=== PATIENT | male | born 1975 | race Caucasian/White ===

== ENCOUNTER 2017-01-02 16:58 | Emergency (ER) | payer OTHER ==
[2017-01-02 18:36] VITALS: BP 141/95
--- NOTE | 2017-01-02 20:08 | RAD ---
INDICATION: Right ankle injury COMPARISON: January 13, 2015 TECHNIQUE: AP, lateral, and oblique views were obtained. FINDINGS: There is no acute fracture or dislocation. There is mild lateral soft tissue swelling. IMPRESSION: MILD LATERAL SOFT TISSUE SWELLING.
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
== END 2017-01-02 20:47 | disposition home or self-care (01) ==
LOC: UCEAST 16:58
DX: S93.401A Sprain of unspecified ligament of right ankle, initial encounter (principal); X58.XXXA Exposure to other specified factors, initial encounter; Z87.891 Personal history of nicotine dependence
CPT/HCPCS: 99213; G0463

== ENCOUNTER 2018-06-13 15:54 | Emergency (ER) | payer OTHER ==
--- NOTE | 2018-06-13 16:49 | RAD ---
INDICATION: Persistent RIGHT wrist pain one month following injury. COMPARISON: February 15, 2016 TECHNIQUE: AP, lateral, and oblique views RIGHT wrist. REPORT AND IMPRESSION: #. Negative for fracture. #. Mild ulnar plus variance which increases stress on the triangular fibrocartilage. #. Mild osteoarthritis including at the basal joint of the thumb and first metacarpal phalangeal joint. #. Mild nonfocal soft tissue swelling.
[2018-06-13 17:11] VITALS: BP 141/93
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
== END 2018-06-13 17:08 | disposition home or self-care (01) ==
LOC: ED 15:54
DX: M77.9 Enthesopathy, unspecified (principal); Z87.891 Personal history of nicotine dependence; Z85.820 Personal history of malignant melanoma of skin
CPT/HCPCS: 99282

== ENCOUNTER 2018-10-05 13:43 | Emergency (ER) | payer OTHER ==
[2018-10-05 13:59] VITALS: BP 140/90
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
[2018-10-05] MEDS ORDERED: Ibuprofen TAB* 600 MG PO ONE (14:18)
== END 2018-10-05 15:24 | disposition home or self-care (01) ==
LOC: UCEAST 13:43
DX: S39.012A Strain of muscle, fascia and tendon of lower back, initial encounter (principal); M25.531 Pain in right wrist; M25.561 Pain in right knee; Z87.891 Personal history of nicotine dependence; W00.0XXA Fall on same level due to ice and snow, initial encounter; Y92.9 Unspecified place or not applicable
CPT/HCPCS: 99212; A9270-GY; G0463

== ENCOUNTER 2019-02-27 19:06 | Emergency (ER) | payer OTHER ==
[2019-02-27] MEDS ORDERED: Bacitracin OINTMENT* 0.5% 0.5 oz TUBE TOPICAL ONE (21:18)
[2019-02-27] MEDS ORDERED: Tetan/Diph/Pertus SYR(Tdap)* 0.5 ML SYR(BOOSTRIX) use SYR IM ONE (21:18)
[2019-02-27] MEDS ORDERED: Sulfamethox/Trimethoprim DS 800/160* TAB PO ONE (21:19)
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
[2019-02-27 21:49] VITALS: BP 139/91
== END 2019-02-27 21:48 | disposition home or self-care (01) ==
LOC: ED 19:06
DX: T24.032A Burn of unspecified degree of left lower leg, initial encounter (principal); X18.XXXA Contact with other hot metals, initial encounter; V28.0XXA Motorcycle driver injured in noncollision transport accident in nontraffic accident, initial encounter; Y92.9 Unspecified place or not applicable; Z87.891 Personal history of nicotine dependence; Z23 Encounter for immunization
CPT/HCPCS: 90471; 90715; 99282; A9270-GY

== ENCOUNTER 2019-05-05 17:58 | Emergency (ER) | payer OTHER ==
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
[2019-05-05] MEDS ORDERED: Morphine 4 MG/ML VIAL (1 ml) 4 MG/ML VIAL IV ONE ×2 (18:18→20:16)
[2019-05-05] MEDS ORDERED: NS 0.9% 1000 ML** 1,000 ML IV ONE (18:18)
[2019-05-05 19:07] LABS: ABS Lymphocytes 0.7 10^3/ul (1.0-4.8); ABS Monocytes 0.8 10^3/ul (0-0.8); ABS Neutrophils 11.4 10^3/ul (1.5-7.7); Eosinophil % 0.1 %; Hematocrit 42 % (42-52); Hemoglobin 14.3 g/dL (14.0-18.0); Lymphocyte % 5.7 %; Mean Corpuscular HGB Conc 34 g/dL (31-36); Mean Corpuscular Hemoglobin 29 pg (27-31); Mean Corpuscular Volume 86 fL (80-94); Mean Platelet Volume 8.1 fL (7.4-10.4); Nucleated Red Blood Cells % 0.1; Platelet Count 173 10^3/uL (150-450); Red Blood Count 4.94 10^6 /uL (4.18-5.48); Red Cell Distribution Width 13 % (10-15)
[2019-05-05 19:23] LABS: Albumin 4.4 g/dL (3.2-5.2); Albumin/Globulin Ratio 1.7 (1-3); BUN/Creatinine Ratio 12.9 (8-20); Calcium 8.9 mg/dL (8.6-10.3); EGFR African American 106.3 (>60); EGFR Non-African American 87.9 (>60); Globulin 2.6 g/dL (2-4); Potassium 3.7 mmol/L (3.5-5.0); Total Bilirubin 0.7 mg/dL (0.2-1.0)
[2019-05-05 19:25] LABS: Troponin I 0.01 ng/mL (<0.04)
[2019-05-05] MEDS ORDERED: Iohexol 300* (CONTRAST) 10 ML SDV IV ONE (19:29)
[2019-05-05] MEDS ORDERED: Lidocaine 2% w/ EPI 1:200,000* 20 ML SDV VIAL INJ ONE (20:49)
[2019-05-05] MEDS ORDERED: Benzocaine/Butamben/Tetracain (CETACAINE - SINGLE USE) 5 gm TOPICAL ONE (20:50)
[2019-05-05 21:56] LABS: Urine Appearance Clear; Urine Bacteria Absent (Absent); Urine Bilirubin Negative (Negative); Urine Blood 1+ (Negative); Urine Color Yellow; Urine Glucose Negative (Negative); Urine Ketones 1+ (Negative); Urine Nitrite Negative (Negative); Urine Protein Negative (Negative); Urine Red Blood Cell Absent (Absent); Urine Specific Gravity 1.053 (1.010-1.030); Urine Squamous Epithelial Cell Present (Absent); Urine Urobilinogen Negative (Negative); Urine White Blood Cell Absent (Absent)
[2019-05-05] MEDS ORDERED: Amoxicillin/Clavulanate TAB* 500 MG PO ONE (22:32)
[2019-05-05 23:46] VITALS: BP 109/65
== END 2019-05-05 23:14 | disposition home or self-care (01) ==
LOC: ED 17:58
DX: S01.511A Laceration without foreign body of lip, initial encounter (principal); M54.9 Dorsalgia, unspecified; R07.89 Other chest pain; M54.2 Cervicalgia; S09.90XA Unspecified injury of head, initial encounter; V86.99XA Unspecified occupant of other special all-terrain or other off-road motor vehicle injured in nontraffic accident, initial encounter; Y92.9 Unspecified place or not applicable; Z87.891 Personal history of nicotine dependence
CPT/HCPCS: 12011; 36415; 70450; 70486; 71045; 71260; 72125; 72131; 74177; 80053; 81003; 81015; 83605; 84484; 85025; 86850; 86900; 86901; 93005; 96361; 96374; 96376; 99284; A9270-GY; J2270; Q9967